=== PATIENT | female | born 2000 | race Two or more races ===

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

== ENCOUNTER → 2023-01-27 | Outpatient (CLI) | payer OTHER ==
[2023-01-27 15:33] LABS: T4, Free (Free Thyroxine) 1.45 ng/dL (0.83-1.43)
[2023-01-28 05:18] LABS: Herpes simplex I and/or II IgM 0.59 INDEX (<=0.90); Herpes simplex IgG I Ab <0.01 (< or = 0.90); Herpes simplex IgG II Ab 0.44 (< or = 0.90)
[2023-01-28 14:57] LABS: N. gonorrhoeae,PCR Negative (Negative)
[2023-01-28 15:10] LABS: C. trachomatis,PCR Negative (Negative)
[2023-01-28 19:59] LABS: HIV 2 AB Non-Reactive (Non-Reactive); HIV AB P24 Non-Reactive (Non-Reactive); HIV P24 AG Non-Reactive (Non-Reactive)
== END | disposition home or self-care (01) ==
LOC: LABWHC1 10:01
PROVIDERS: ATTEND Internal Medicine
DX: Z20.2 Contact with and (suspected) exposure to infections with a predominantly sexual mode of transmission (principal); E03.9 Hypothyroidism, unspecified; E55.9 Vitamin D deficiency, unspecified
CPT/HCPCS: 36415; 82306; 82652; 84439; 84443; 86631; 86632; 86694; 86695; 86696; 86780; 87390; 87491; 87591

== ENCOUNTER → 2023-02-01 | Outpatient (CLI) | payer OTHER ==
--- NOTE | 2023-02-01 21:54 | MR ---
EXAMINATION TYPE: MR brain wo/w con DATE OF EXAM: 02/01/2023 COMPARISON: 11/21/2021 HISTORY: Brain cancer. Hx surgery 2012. CONTRAST: Performed utilizing 5.5 mL intravenous Gadavist gadolinium contrast. TECHNIQUE: Multiplanar, multiecho imaging on a 3.0 Linda magnet is performed through the brain. Stud y is performed within 24 hours of arrival to the hospital. The craniovertebral junction is normal. The pituitary is normal. Optic chiasm as visualized is norm al. Diffusion-weighted imaging is performed. No abnormal hyperintensity is present to suggest an acute i ntracranial infarct or acute ischemic change. Signal within the brain appears normal. Following contrast, no abnormal enhancement is evident. No carrillo spicious changes to suggest recurrence. Ventricles and sulci are appropriate for the patient age. IMPRESSION: 1. No suspicious change suggestive of recurrence.
== END | disposition home or self-care (01) ==
LOC: RADMRIMAIN 07:48
PROVIDERS: ATTEND Internal Medicine
DX: C71.9 Malignant neoplasm of brain, unspecified (principal)
CPT/HCPCS: 70553; A9585

== ENCOUNTER 2023-06-21 08:25 | Emergency (ER) | payer OTHER ==
--- NOTE | 2023-06-21 08:40 | ED ---
Abdominal Pain HPI - General Chief Complaint: Abdominal Pain Stated Complaint: Abdominal Pain Time Seen by Provider: 06/21/23 08:32 Source: patient, RN notes reviewed Mode of arrival: ambulatory Limitations: no limitations - History of Present Illness Initial Comments: 22-year-old female presents emergency department chief complaint of left-sided abdominal pain, pelvic pain. She states pain has been intermittent states that she does not currently have but states that has happened. No change in bowel habits no dysuria denies chance of . No fevers or chills she states she is just concerned as she had a brain tumor when she was younger so she always worried something else is wrong. She denies any prior abdominal surgeries no flank pain no back pain. - Related Data Allergies Allergy/AdvReac Type Severity Reaction Status Date / Time No Known Allergies Allergy Verified 06/21/23 08:31 Review of Systems ROS Statement: Those systems with pertinent positive or pertinent negative responses have been documented in the HPI. ROS Other: All systems not noted in ROS Statement are negative. Past Medical History Past Medical History: Cancer History of Any Multi-Drug Resistant Organisms: None Reported Additional Past Surgical History / Comment(s): Brain CA, G tube Past Psychological History: No Psychological Hx Reported Smoking Status: Never smoker Past Alcohol Use History: None Reported Past Drug Use History: None Reported General Exam Limitations: no limitations General appearance: alert, in no apparent distress Head exam: Present: atraumatic, normocephalic, normal inspection Eye exam: Present: normal appearance, PERRL, EOMI. Absent: scleral icterus, conjunctival injection, periorbital swelling ENT exam: Present: normal exam, mucous membranes moist Neck exam: Present: normal inspection. Absent: tenderness, meningismus, lymphadenopathy Respiratory exam: Present: normal lung sounds bilaterally. Absent: respiratory distress, wheezes, rales, rhonchi, stridor Cardiovascular Exam: Present: regular rate, normal rhythm, normal heart sounds. Absent: systolic murmur, diastolic murmur, rubs, gallop, clicks GI/Abdominal exam: Present: soft, normal bowel sounds. Absent: distended, tenderness, guarding, rebound, rigid Back exam: Absent: CVA tenderness (R), CVA tenderness (L) Neurological exam: Present: alert Course Vital Signs 06/21/23 06/21/23 06/21/23 08:28 08:47 08:58 Temperature 98.1 F 98.2 F Pulse Rate 128 H 139 H 117 H Respiratory 18 18 20 Rate Blood Pressure 150/82 129/88 O2 Sat by Pulse 99 100 100 Oximetry 06/21/23 06/21/23 10:00 10:59 Temperature 98.6 F Pulse Rate 67 89 Respiratory 16 18 Rate Blood Pressure 113/69 101/83 O2 Sat by Pulse 100 100 Oximetry Medical Decision Making - Medical Decision Making Was pt. sent in by a medical professional or institution (, PA, PER DIEM CLERK, urgent care, hospital, or [place] [facility]...) When possible be specific @ -No Did you speak to anyone other than the patient for history (EMS, parent, family, police, friend...)? What history was obtained from this source @ -No Did you review nursing and triage notes (agree or disagree)? Why? @ -I reviewed and agree with nursing and triage notes Were old charts reviewed (outside hosp., previous admission, EMS record, old EKG, old radiological studies, urgent care reports/EKG's, [place] [facility] records)? Report findings @ -No old charts were reviewed Differential Diagnosis (chest pain, altered mental status, abdominal pain women, abdominal pain men, vaginal bleeding, weakness, fever, dyspnea, syncope, headache, dizziness, GI bleed, back pain, seizure, CVA, palpatations, mental health, musculoskeletal)? @ -Differential Abdominal Pain Women: Appendicitis, Cholecystitis, diverticulosis, ischemic bowel, pancreatitis, hepatitis, UTI, gastroenteritis, AAA, incarcerated hernia, bowel obstruction, constipation, inflammatory bowel, hepatitis, peptic ulcer disease, splenic infarction, perforated viscus, vulvitis, ovarian torsion, PID, kidney stone, placenta abruption, this is not meant to be an all-inclusive list EKG interpreted by me (3pts min.). @ -None X-rays interpreted by me (1pt min.). @ -None done CT interpreted by me (1pt min.). @ -None done U/S interpreted by me (1pt. min.). @ -Ultrasound pelvic showed no acute abnormality no torsion or cyst noted What testing was considered but not performed or refused? (CT, X-rays, U/S, labs)? Why? @ -None What meds were considered but not given or refused? Why? @ -None Did you discuss the management of the patient with other professionals (professionals i.e. , PA, PER DIEM CLERK, lab, RT, psych nurse, social services, cocoa bean roaster, teacher, adult probation officer, casework supervisor)? Give summary @ -No Was smoking cessation discussed for >3mins.? @ -No Was critical care preformed (if so, how long)? @ -No Were there social determinants of health that impacted care today? How? (Homelessness, low income, unemployed, alcoholism, drug addiction, transpo rtation, low edu. Level, literacy, decrease access to med. care, [place] [facility], rehab)? @ -No Was there de-escalation of care discussed even if they declined (Discuss DNR or withdrawal of care, Hospice)? DNR status @ -No What co-morbidities impacted this encounter? (DM, HTN, Smoking, COPD, CAD, Cancer, CVA, ARF, Chemo, Hep., AIDS, mental health diagnosis, sleep apnea, morbid obesity)? @ -None Was patient admitted / discharged? Hospital course, mention meds given and route, prescriptions, significant lab abnormalities, going to OR and other pertinent info. @ -Discharge patient ultrasound negative for acute process. Patient is discharged in stable condition vitals, labs unremarkable. Undiagnosed new problem with uncertain prognosis? @ -No Drug Therapy requiring intensive monitoring for toxicity (Heparin, Nitro, Insulin, Cardizem)? @ -No Were any procedures done? @ -No Diagnosis/symptom? @ -Abdominal pain Acute, or Chronic, or Acute on Chronic? @ -Acute Uncomplicated (without systemic symptoms) or Complicated (systemic symptoms)? @ -Uncomplicated Side effects of treatment? @ -No Exacerbation, Progression, or Severe Exacerbation? @ -No Poses a threat to life or bodily function? How? (Chest pain, [place], [place], pneumonia, PE, COPD, DKA, ARF, appy, cholecystitis, CVA, Diverticulitis, Homicidal, Suic idal, threat to staff... and all critical care pts) @ -No - Lab Data Result diagrams: 06/21/23 08:40 06/21/23 08:40 Lab Results 06/21/23 06/21/23 06/21/23 Range/Units 08:40 08:40 08:40 WBC 7.2 (4.0-11.0) k/uL RBC 4.58 (3.80-5.40) m/uL Hgb 14.0 (11.4-16.0) gm/dL Hct 41.0 (34.0-46.0) % MCV 89.6 (80.0-100.0) fL MCH 30.6 (25.0-35.0) pg MCHC 34.1 (31.0-37.0) g/dL RDW 12.4 (11.5-15.5) % Plt Count 336 (150-450) k/uL MPV 8.3 Neutrophils % 56 % Lymphocytes % 34 % Monocytes % 5 % Eosinophils % 4 % Basophils % 1 % Neutrophils # 4.0 (1.3-7.7) k/uL Lymphocytes # 2.4 (1.0-4.8) k/uL Monocytes # 0.4 (0-1.0) k/uL Eosinophils # 0.3 (0-0.7) k/uL Basophils # 0.0 (0-0.2) k/uL Sodium (137-145) mmol/L Potassium (3.5-5.1) mmol/L Chloride (98-107) mmol/L Carbon Dioxide (22-30) mmol/L Anion Gap mmol/L BUN (7-17) mg/dL Creatinine (0.52-1.04) mg/dL Est GFR (CKD-EPI)AfAm (>60 ml/min/1.73 sqM) Est GFR (CKD-EPI)NonAf (>60 ml/min/1.73 sqM) Glucose (74-99) mg/dL Calcium (8.4-10.2) mg/dL Total Bilirubin (0.2-1.3) mg/dL AST (14-36) U/L ALT (4-34) U/L Alkaline Phosphatase (38-126) U/L Total Protein (6.3-8.2) g/dL Albumin (3.5-5.0) g/dL Lipase (23-300) U/L Urine Color Yellow Urine Appearance Cloudy H (Clear) Urine pH 5.5 (5.0-8.0) Ur Specific [place] 1.027 (1.001-1.035) Urine Protein 1+ H (Negative) Urine Glucose (UA) Negative (Negative) Urine Ketones Negative (Negative) Urine Blood Small H (Negative) Urine Nitrite Negative (Negative) Urine Bilirubin Negative (Negative) Urine Urobilinogen <2.0 (<2.0) mg/dL Ur Leukocyte Esterase Negative (Negative) Urine RBC 3 (0-5) /hpf Urine WBC 5 (0-5) /hpf Ur Squamous Epith Cells 18 H (0-4) /hpf Urine Bacteria Rare H (None) /hpf Urine Mucus Occasional H (None) /hpf Urine HCG, Qual Not Detected (Not Detectd) 06/21/23 Range/Units 08:40 WBC (4.0-11.0) k/uL RBC (3.80-5.40) m/uL Hgb (11.4-16.0) gm/dL Hct (34.0-46.0) % MCV (80.0-100.0) fL MCH (25.0-35.0) pg MCHC (31.0-37.0) g/dL RDW (11.5-15.5) % Plt Count (150-450) k/uL MPV Neutrophils % % Lymphocytes % % Monocytes % % Eosinophils % % Basophils % % Neutrophils # (1.3-7.7) k/uL Lymphocytes # (1.0-4.8) k/uL Monocytes # (0-1.0) k/uL Eosinophils # (0-0.7) k/uL Basophils # (0-0.2) k/uL Sodium 138 (137-145) mmol/L Potassium 3.7 (3.5-5.1) mmol/L Chloride 106 (98-107) mmol/L Carbon Dioxide 23 (22-30) mmol/L Anion Gap 9 mmol/L BUN 15 (7-17) mg/dL Creatinine 0.57 (0.52-1.04) mg/dL Est GFR (CKD-EPI)AfAm >90 (>60 ml/min/1.73 sqM) Est GFR (CKD-EPI)NonAf >90 (>60 ml/min/1.73 sqM) Glucose 96 (74-99) mg/dL Calcium 9.7 (8.4-10.2) mg/dL Total Bilirubin 0.7 (0.2-1.3) mg/dL AST 28 (14-36) U/L ALT 24 (4-34) U/L Alkaline Phosphatase 64 (38-126) U/L Total Protein 7.6 (6.3-8.2) g/dL Albumin 4.5 (3.5-5.0) g/dL Lipase 89 (23-300) U/L Urine Color Urine Appearance (Clear) Urine pH (5.0-8.0) Ur Specific [place] (1.001-1.035) Urine Protein (Negative) Urine Glucose (UA) (Negative) Urine Ketones (Negative) Urine Blood (Negative) Urine Nitrite (Negative) Urine Bilirubin (Negative) Urine Urobilinogen (<2.0) mg/dL Ur Leukocyte Esterase (Negative) Urine RBC (0-5) /hpf Urine WBC (0-5) /hpf Ur Squamous Epith Cells (0-4) /hpf Urine Bacteria (None) /hpf Urine Mucus (None) /hpf Urine HCG, Qual (Not Detectd) Disposition Clinical Impression: Abdominal pain Disposition: HOME SELF-CARE Condition: Stable Instructions (If sedation given, give patient instructions): Abdominal Pain (ED) Additional Instructions: Please return to the Emergency Department if symptoms worsen or any other concerns. Is patient prescribed a controlled substance at d/c from ED?: No Referrals: None,Stated [REFERRING] - 1-2 days Zofia Pritchett MD [STAFF PHYSICIAN] - 1-2 days Time of Disposition: 10:24
[2023-06-21 09:41] LABS: ALT 24 U/L (4-34); AST 28 U/L (14-36); African American GFR (CKD) >90 (>60 ml/min/1.73 sqM); Albumin 4.5 g/dL (3.5-5.0); Alkaline Phosphatase 64 U/L (38-126); Anion Gap 9 mmol/L; Basophils % (A) 1 %; Blood Urea Nitrogen 15 mg/dL (7-17); Calcium 9.7 mg/dL (8.4-10.2); Carbon Dioxide 23 mmol/L (22-30); Chloride 106 mmol/L (98-107); Eosinophils # (A) 0.3 k/uL (0-0.7); Eosinophils % (A) 4 %; Glucose 96 mg/dL (74-99); Lipase 89 U/L (23-300); Lymphocytes # (A) 2.4 k/uL (1.0-4.8); Lymphocytes % (A) 34 %; MCH 30.6 pg (25.0-35.0); MCHC 34.1 g/dL (31.0-37.0); MCV 89.6 fL (80.0-100.0); Mean Platelet Volume 8.3; Monocytes # (A) 0.4 k/uL (0-1.0); Monocytes % (A) 5 %; Neutrophils % (A) 56 %; Non-African American GFR(CKD) >90 (>60 ml/min/1.73 sqM); Platelet Count 336 k/uL (150-450); Potassium 3.7 mmol/L (3.5-5.1); RBC 4.58 m/uL (3.80-5.40); RDW 12.4 % (11.5-15.5); Sodium 138 mmol/L (137-145); Total Bilirubin 0.7 mg/dL (0.2-1.3); Total Protein 7.6 g/dL (6.3-8.2); WBC 7.2 k/uL (4.0-11.0)
[2023-06-21 09:44] LABS: Appearance,Urine Cloudy (Clear); Bacteria,Urine Rare /hpf; Bilirubin,Urine Negative (Negative); Blood,Urine Small (Negative); Color,Urine Yellow; Glucose,Urine (UA) Negative (Negative); Ketones,Urine Negative (Negative); Leukocyte Esterase,Urine Negative (Negative); Mucus,Urine Occasional /hpf; Nitrite,Urine Negative (Negative); PH, Urine 5.5 (5.0-8.0); Protein,Urine 1+ (Negative); RBC,Urine 3 /hpf (0-5); Specific Gravity,Urine 1.027 (1.001-1.035); Squamous Epithelial Cell,Urine 18 /hpf (0-4); Urobilinogen,Urine <2.0 mg/dL (<2.0); WBC,Urine 5 /hpf (0-5)
[2023-06-21] MEDS: SODIUM CHLORIDE 0.9% 1,000 ML IV ONE (09:54)
--- NOTE | 2023-06-21 10:14 | US ---
EXAMINATION TYPE: US transvaginal DATE OF EXAM: 06/21/2023 COMPARISON: NONE CLINICAL INDICATION: Female, 22 years old with history of left sided pain; llq pain TECHNIQUE: Transvaginal (TV). EXAM MEASUREMENTS: Uterus: 7.7 x 3.6 x 5.2 cm Endometrial Stripe: 1.5 cm Left Ovary: 2.7 x 1.5 x 1.9 cm 1. Uterus: Retroverted wnl 2. Endometrium: wnl 3. Right Ovary: Obscured by overlying bowel gas 4. Left Ovary: Normal follicle Spectral, color and waveform doppler imaging shows good arterial and venous flow within the left ov malick; there is no evidence for ovarian torsion. 5. Bilateral Adnexa: wnl 6. Posterior cul-de-sac: wnl IMPRESSION: Unremarkable exam.
[2023-06-21 11:09] VITALS: BP 101/83; PULSE 89; RESP 18; TEMP 98.6
== END 2023-06-21 11:03 | disposition home or self-care (01) ==
LOC: EC 08:25
DX: R10.2 Pelvic and perineal pain (principal)
CPT/HCPCS: 36415; 76830; 80053; 81001; 81025; 83690; 85025; 93976; 96360; 99284

== ENCOUNTER 2023-10-07 17:58 | Observation (INO) | payer OTHER ==
--- NOTE | 2023-10-07 18:28 | ED ---
Abdominal Pain HPI - General Source: patient, RN notes reviewed Mode of arrival: ambulatory Limitations: no limitations <Mila Singh - Last Filed: 10/08/23 00:29> <Fortino Oliveira - Last Filed: 10/09/23 06:22> - General Chief Complaint: Abdominal Pain Stated Complaint: R side pain Time Seen by Provider: 10/07/23 18:26 - History of Present Illness Initial Comments: 22-year-old female with a past medical history significant of brain cancer presented to the ER with a chief complaint of right-sided flank/abdominal pain. She reports this started yesterday and persisted through last night. Today she had mild relief but has since returned about 1 hour ago. She describes it as a sharp pain rating it a 4 out of 10. She reports laying flat improves her pain and movement exacerbates it. She denies any nausea, vomiting, fevers, chills, constipation/diarrhea or urinary complaints. (Mila Singh) - Related Data Home Medications Medication Instructions Recorded Confirmed Ergocalciferol (Vitamin D2) 1,250 mcg PO Q30D 10/08/23 10/08/23 [Drisdol (50,000 Iu)] Levothyroxine Sodium [Synthroid] 75 mcg PO DAILY 10/08/23 10/08/23 Allergies Allergy/AdvReac Type Severity Reaction Status Date / Time No Known Allergies Allergy Verified 10/08/23 10:11 Review of Systems ROS Other: All systems not noted in ROS Statement are negative. <Mila Singh - Last Filed: 10/08/23 00:29> ROS Other: All systems not noted in ROS Statement are negative. <Fortino Oliveira - Last Filed: 10/09/23 06:22> ROS Statement: Those systems with pertinent positive or pertinent negative responses have been documented in the HPI. Past Medical History Past Medical History: Cancer History of Any Multi-Drug Resistant Organisms: None Reported Additional Past Surgical History / Comment(s): Brain CA, G tube Past Psychological History: No Psychological Hx Reported Smoking Status: Never smoker Past Alcohol Use History: None Reported Past Drug Use History: None Reported <Mila Singh - Last Filed: 10/08/23 00:29> General Exam Limitations: no limitations General appearance: alert, in no apparent distress Respiratory exam: Present: normal lung sounds bilaterally. Absent: respiratory distress, wheezes, rales, rhonchi, stridor Cardiovascular Exam: Present: regular rate, normal rhythm, normal heart sounds. Absent: systolic murmur, diastolic murmur, rubs, gallop, clicks GI/Abdominal exam: Present: soft, tenderness (RUQ), normal bowel sounds Back exam: Present: normal inspection Neurological exam: Present: alert, oriented X3, CN II-XII intact Skin exam: Present: warm, dry, intact, normal color. Absent: rash <Mila Singh - Last Filed: 10/08/23 00:29> Course <Mila Singh - Last Filed: 10/08/23 00:29> Vital Signs 10/07/23 10/07/23 10/07/23 18:04 21:00 22:00 Temperature 98.1 F Pulse Rate 83 70 76 Respiratory 18 16 16 Rate Blood Pressure 136/93 132/90 126/68 O2 Sat by Pulse 98 100 99 Oximetry 10/07/23 10/08/23 10/08/23 23:00 01:00 02:48 Temperature Pulse Rate 64 65 68 Respiratory 16 16 16 Rate Blood Pressure 117/84 112/70 107/58 O2 Sat by Pulse 99 99 98 Oximetry - Reevaluation(s) Reevaluation #1: 10/07/23 23:[address] Bales, [facility] physician, who accepts medical admission. (Mila Singh) Medical Decision Making - Lab Data Result diagrams: 10/07/23 18:46 10/07/23 18:46 <Mila Singh - Last Filed: 10/08/23 00:29> - Lab Data Result diagrams: 10/08/23 06:11 10/08/23 06:11 <Fortino Oliveira - Last Filed: 10/09/23 06:22> - Medical Decision Making Was pt. sent in by a medical professional or institution (, PA, SILK BLOCKER, urgent care, hospital, or longterm...) When possible be specific @ -No Did you speak to anyone other than the patient for history (EMS, parent, family, police, friend...)? What history was obtained from this source @ -No Did you review nursing and triage notes (agree or disagree)? Why? @ -I reviewed and agree with nursing and triage notes Were old charts reviewed (outside hosp., previous admission, EMS record, old EKG, old radiological studies, urgent care reports/EKG's, longterm records)? Report findings @ -Yes, I reviewed ER visit note and laboratory studies from June 2023 patient seen here for abdominal pain. Patient discharged home. Differential Diagnosis (chest pain, altered mental status, abdominal pain women, abdominal pain men, vaginal bleeding, weakness, fever, dyspnea, syncope, headache, dizziness, GI bleed, back pain, seizure, CVA, palpatations, mental health, musculoskeletal)? @ -Differential Abdominal Pain Women: Appendicitis, Cholecystitis, diverticulosis, ischemic bowel, pancreatitis, hepatitis, UTI, gastroenteritis, AAA, incarcerated hernia, bowel obstruction, constipation, inflammatory bowel, hepatitis, peptic ulcer disease, splenic infarction, perforated viscus, vulvitis , ovarian torsion, PID, kidney stone, placenta abruption, this is not meant to be an all-inclusive list EKG interpreted by me (3pts min.). @ -None done X-rays interpreted by me (1pt min.). @ -None done CT interpreted by me (1pt min.). @ -CT abdomen pelvis significant for right renal findings suggesting pyelonephritis or infarct. U/S interpreted by me (1pt. min.). @ -Gallbladder ultrasound remarkable for a 0.4 cm adherent calculus versus polyp along the anterior gallbladder wall. No acute evidence of cholecystitis. What testing was considered but not performed or refused? (CT, X-rays, U/S, labs)? Why? @ -None What meds were considered but not given or refused? Why? @ -None Did you discuss the management of the patient with other professionals (professionals i.e. , PA, SILK BLOCKER, lab, RT, psych nurse, dialysis social worker, [place], teacher, loan workout officer, immigration case worker)? Give summary @ -Yes, case discussed with Dr. Bales, [facility] physician, who accepts medical admission. Was smoking cessation discussed for >3mins.? @ -No Was critical care preformed (if so, how long)? @ -No Were there social determinants of health that impacted care today? How? (Homelessness, low income, unemployed, alcoholism, drug addiction, transportation, low edu. Level, literacy, decrease access to med. care, fci, rehab)? @ -No Was there de-escalation of care discussed even if they declined (Discuss DNR or withdrawal of care, Hospice)? DNR status @ -No What co-morbidities impacted this encounter? (DM, HTN, Smoking, COPD, CAD, Cancer, CVA, ARF, Chemo, Hep., AIDS, mental health diagnosis, sleep apnea, morbi d obesity)? @ -Hx brain cancer Was patient admitted / discharged? Hospital course, mention meds given and route, prescriptions, significant lab abnormalities, going to OR and other pertinent info. @ -Admitted. 22-year-old female presented to the ER with a chief complaint of right flank pain. History and physical exam completed. Vitals stable. Exam largely unremarkable. Laboratory studies obtained remarkable for leukocytosis WBC 11.6. Transaminitis (AST 250, ALT 693, alk phos 261, LDH 629). Urine analysis hemorrhagic with moderate blood which is likely contaminated from recen t menses. Urine hCG negative. No evidence of urinary tract infection. Due to transaminitis, gallbladder ultrasound obtained which was remarkable for a 0.4 cm polyp versus calculus. No acute findings of cholecystitis. CT abdomen pelvis performed as CBD not visualized on ultrasound. CT abdomen pelvis significant for right renal findings suggesting pyelonephritis or infarct. No other acute findings. Patient received IV fluids and Toradol for symptom control in the ER. Admission considered due to CT findings and concern due to patient's cancer history. Case discussed with [facility] physician, Dr. Bales, who admission. Oncology on consult. Patient agreeable for admission. Patient is in stable condition. Case disucssed with ED attending, Dr. Oliveira. Undiagnosed new problem with uncertain prognosis? @ -No Drug Therapy requiring intensive monitoring for toxicity (Heparin, Nitro, Insulin, Cardizem)? @ -No Were any procedures done? @ -No Diagnosis/symptom? @ -Flank pain Acute, or Chronic, or Acute on Chronic? @ -Acute Uncomplicated (without systemic symptoms) or Complicated (systemic symptoms)? @ -Complicated Side effects of treatment? @ -No Exacerbation, Progression, or Severe Exacerbation? @ -No Poses a threat to life or bodily function? How? (Chest pain, [place], [place], pneumonia, PE, COPD, DKA, ARF, appy, cholecystitis, CVA, Diverticulitis, Homicidal, Suicidal, threat to staff... and all critical care pts) @ -Low likelihood at this time (Mila Singh) - Lab Data Lab Results 10/07/23 10/07/23 10/07/23 Range/Units 18:46 18:46 18:46 WBC 11.6 H (4.0-11.0) k/uL RBC 4.19 (3.80-5.40) m/uL Hgb 12.6 (11.4-16.0) gm/dL Hct 38.2 (34.0-46.0) % MCV 91.3 (80.0-100.0) fL MCH 30.1 (25.0-35.0) pg MCHC 32.9 (31.0-37.0) g/dL RDW 12.8 (11.5-15.5) % Plt Count 179 (150-450) k/uL MPV 7.3 Neutrophils % Not Reportable Neutrophils % (Manual) 24 % Lymphocytes % Not Reportable Lymphocytes % (Manual) 70 % Monocytes % Not Reportable Monocytes % (Manual) 6 % Eosinophils % Not Reportable Basophils % Not Reportable Neutrophils # Not Reportable Neutrophils # (Manual) 2.78 (1.3-7.7) k/uL Lymphocytes # Not Reportable Lymphocytes # (Manual) 8.12 H (1.0-4.8) k/uL Monocytes # Not Reportable Monocytes # (Manual) 0.70 (0-1.0) k/uL Eosinophils # Not Reportable Basophils # Not Reportable Nucleated RBCs 0 (0-0) /100 WBC Manual Slide Review Performed Reactive Lymphocytes Present RBC Morphology Sodium (137-145) mmol/L Potassium (3.5-5.1) mmol/L Chloride (98-107) mmol/L Carbon Dioxide (22-30) mmol/L Anion Gap mmol/L BUN (7-17) mg/dL Creatinine (0.52-1.04) mg/dL Est GFR (CKD-EPI)AfAm (>60 ml/min/1.73 sqM) Est GFR (CKD-EPI)NonAf (>60 ml/min/1.73 sqM) Glucose (74-99) mg/dL Plasma Lactic Acid Neri (0.7-2.0) mmol/L Calcium (8.4-10.2) mg/dL Total Bilirubin (0.2-1.3) mg/dL AST (14-36) U/L ALT (4-34) U/L Alkaline Phosphatase (38-126) U/L Lactate Dehydrogenase (120-246) U/L Total Protein (6.3-8.2) g/dL Albumin (3.5-5.0) g/dL Amylase (30-110) U/L Lipase (23-300) U/L Urine Color Yellow Urine Appearance Clear (Clear) Urine pH 5.5 (5.0-8.0) Ur Specific [place] 1.021 (1.001-1.035) Urine Protein Trace H (Negative) Urine Glucose (UA) Negative (Negative) Urine Ketones Negative (Negative) Urine Blood Moderate H (Negative) Urine Nitrite Negative (Negative) Urine Bilirubin Negative (Negative) Urine Urobilinogen <2.0 (<2.0) mg/dL Ur Leukocyte Esterase Negative (Negative) Urine RBC 2 (0-5) /hpf Urine WBC 2 (0-5) /hpf Ur Squamous Epith Cells 4 (0-4) /hpf Urine Bacteria Rare H (None) /hpf Urine Mucus Occasional H (None) /hpf Urine HCG, Qual Not Detected (Not Detectd) 10/07/23 10/07/23 10/07/23 Range/Units 18:46 18:46 18:46 WBC (4.0-11.0) k/uL RBC (3.80-5.40) m/uL Hgb (11.4-16.0) gm/dL Hct (34.0-46.0) % MCV (80.0-100.0) fL MCH (25.0-35.0) pg MCHC (31.0-37.0) g/dL RDW (11.5-15.5) % Plt Count (150-450) k/uL MPV Neutrophils % Neutrophils % (Manual) % Lymphocytes % Lymphocytes % (Manual) % Monocytes % Monocytes % (Manual) % Eosinophils % Basophils % Neutrophils # Neutrophils # (Manual) (1.3-7.7) k/uL Lymphocytes # Lymphocytes # (Manual) (1.0-4.8) k/uL Monocytes # Monocytes # (Manual) (0-1.0) k/uL Eosinophils # Basophils # Nucleated RBCs (0-0) /100 WBC Manual Slide Review Reactive Lymphocytes RBC Morphology Sodium 140 (137-145) mmol/L Potassium 3.6 (3.5-5.1) mmol/L Chloride 107 (98-107) mmol/L Carbon Dioxide 25 (22-30) mmol/L Anion Gap 8 mmol/L BUN 19 H (7-17) mg/dL Creatinine 0.64 (0.52-1.04) mg/dL Est GFR (CKD-EPI)AfAm >90 (>60 ml/min/1.73 sqM) Est GFR (CKD-EPI)NonAf >90 (>60 ml/min/1.73 sqM) Glucose 97 (74-99) mg/dL Plasma Lactic Acid Neri 1.2 (0.7-2.0) mmol/L Calcium 9.5 (8.4-10.2) mg/dL Total Bilirubin 1.1 (0.2-1.3) mg/dL AST 250 H (14-36) U/L ALT 693 H (4-34) U/L Alkaline Phosphatase 261 H (38-126) U/L Lactate Dehydrogenase 629 H (120-246) U/L Total Protein 7.2 (6.3-8.2) g/dL Albumin 4.3 (3.5-5.0) g/dL Amylase 52 (30-110) U/L Lipase 93 (23-300) U/L Urine Color Urine Appearance (Clear) Urine pH (5.0-8.0) Ur Specific [place] (1.001-1.035) Urine Protein (Negative) Urine Glucose (UA) (Negative) Urine Ketones (Negative) Urine Blood (Negative) Urine Nitrite (Negative) Urine Bilirubin (Negative) Urine Urobilinogen (<2.0) mg/dL Ur Leukocyte Esterase (Negative) Urine RBC (0-5) /hpf Urine WBC (0-5) /hpf Ur Squamous Epith Cells (0-4) /hpf Urine Bacteria (None) /hpf Urine Mucus (None) /hpf Urine HCG, Qual (Not Detectd) Disposition Time of Disposition: 23:12 <Mila Singh - Last Filed: 10/08/23 00:29> <Fortino Oliveira - Last Filed: 10/09/23 06:22> Clinical Impression: Flank pain Disposition: ADMITTED IP TO THIS HOSP Condition: Stable
[2023-10-07] MEDS: SODIUM CHLORIDE 0.9% 1,000 ML IV STA (18:52)
[2023-10-07 18:55] LABS: HCT 38.2 % (34.0-46.0); HGB 12.6 gm/dL (11.4-16.0); MCH 30.1 pg (25.0-35.0); MCHC 32.9 g/dL (31.0-37.0); MCV 91.3 fL (80.0-100.0); Mean Platelet Volume 7.3; Platelet Count 179 k/uL (150-450); RBC 4.19 m/uL (3.80-5.40); RDW 12.8 % (11.5-15.5); WBC 11.6 k/uL (4.0-11.0)
[2023-10-07 19:00] LABS: Appearance,Urine Clear (Clear); Bacteria,Urine Rare /hpf; Bilirubin,Urine Negative (Negative); Blood,Urine Moderate (Negative); Color,Urine Yellow; Glucose,Urine (UA) Negative (Negative); Ketones,Urine Negative (Negative); Leukocyte Esterase,Urine Negative (Negative); Mucus,Urine Occasional /hpf; Nitrite,Urine Negative (Negative); PH, Urine 5.5 (5.0-8.0); Protein,Urine Trace (Negative); RBC,Urine 2 /hpf (0-5); Specific Gravity,Urine 1.021 (1.001-1.035); Squamous Epithelial Cell,Urine 4 /hpf (0-4); Urobilinogen,Urine <2.0 mg/dL (<2.0); WBC,Urine 2 /hpf (0-5)
--- NOTE | 2023-10-07 19:02 | XR ---
EXAMINATION TYPE: XR KUB DATE OF EXAM: 10/07/2023 6:58 PM CLINICAL INDICATION:Female, 22 years old with history of abd pain; COMPARISON: None. TECHNIQUE: One radiographic view of the abdomen was obtained. FINDINGS: Moderate amount of stool, The bowel gas pattern is nonspecific without dilated loops of sma ll or large bowel. . Fecal material and gas are demonstrated throughout the colon and rectum. There is no evidence for organomegaly or pneumoperitoneum. The osseous structures are intact. No ab normal calcifications are present. Scoliosis changes of the spine. IMPRESSION: Moderate amount of stool, Nonspecific bowel gas pattern without radiographic evidence for acute proce ss.
[2023-10-07 19:06] LABS: ALT 693 U/L (4-34); AST 250 U/L (14-36); African American GFR (CKD) >90 (>60 ml/min/1.73 sqM); Albumin 4.3 g/dL (3.5-5.0); Alkaline Phosphatase 261 U/L (38-126); Amylase 52 U/L (30-110); Anion Gap 8 mmol/L; Blood Urea Nitrogen 19 mg/dL (7-17); Calcium 9.5 mg/dL (8.4-10.2); Carbon Dioxide 25 mmol/L (22-30); Chloride 107 mmol/L (98-107); Glucose 97 mg/dL (74-99); Lipase 93 U/L (23-300); Non-African American GFR(CKD) >90 (>60 ml/min/1.73 sqM); Potassium 3.6 mmol/L (3.5-5.1); Sodium 140 mmol/L (137-145); Total Bilirubin 1.1 mg/dL (0.2-1.3); Total Protein 7.2 g/dL (6.3-8.2)
[2023-10-07 19:21] LABS: Lymphocytes # (M) 8.12 k/uL (1.0-4.8); Neutrophils # (M) 2.78 k/uL (1.3-7.7); Neutrophils % (M) 24 %; Nucleated Red Blood Cells 0 /100 WBC (0-0); Total Cells Counted 100
[2023-10-07 19:24] LABS: Reactive Lymphocytes Present
--- NOTE | 2023-10-07 20:48 | US ---
EXAMINATION TYPE: US gallbladder DATE OF EXAM: 10/07/2023 COMPARISON: NONE CLINICAL INDICATION: Female, 22 years old with history of RUQ abd pain; RUQ pain TECHNIQUE: Multiple sonographic images of the right upper quadrant are obtained. FINDINGS: EXAM MEASUREMENTS: Liver Length: 15.3 cm Gallbladder Wall: 0.27 cm CBD: Obscured Right Kidney: 9.3 x 5.4 x 3.5 cm [place] NOTES: Exam is limited due to overlying gas. Pancreas: Portions seen appear wnl, tail was obscured. Liver: Appears coarse in echotexture Gallbladder: Hyperechoic area seen that appears to be attached to the anterior gallbladder wall: 0.4 x 0.4 x 0.2 cm, without color Doppler flow demonstrated Evidence for sonographic Zapien's sign: No CBD: Obscured Right Kidney: No hydronephrosis or masses seen IMPRESSION: 1. Limited study. Pancreatic tail and CBD are obscured. 2. A 0.4 cm adherent calculus versus polyp along the anterior gallbladder wall. 3. Otherwise, no sizable gallstones are demonstrated. No secondary signs of acute cholecystitis. 4. Coarsened hepatic echotexture, can be seen with diffuse hepatocellular disease, commonly steatosi s.
--- NOTE | 2023-10-07 21:37 | CT ---
EXAMINATION TYPE: CT abdomen pelvis w con CT DLP: 575.3 mGycm, Automated exposure control for dose reduction was used. DATE OF EXAM: 10/07/2023 9:17 PM COMPARISON: None. CLINICAL INDICATION:Female, 22 years old with history of transaminitis; Right side and back pain x 2 days TECHNIQUE: Axial CT of the abdomen and pelvis. Sagittal and coronal reformats were created on a [employer] workstation. Contrast used:100 mL of Isovue 300 with IV Contrast, (none if empty) Oral contrast used: without Oral Contrast (none if empty) FINDINGS: LOWER CHEST: Unremarkable ABDOMEN LIVER: Unremarkable GALLBLADDER AND BILE DUCTS: Unremarkable gallbladder. No biliary ductal dilatation. PANCREAS: Unremarkable. SPLEEN: Unremarkable. ADRENAL GLANDS: Unremarkable. KIDNEYS AND URETERS: Kidneys largely appear to enhance normally. There is a small wedge-shaped periph eral area in the superior right kidney posterolaterally with slight haziness of the corticomedullary distinction which appears to extend to the parenchymal surface. There are subtle similar changes sugg ested in the anteromedial right upper pole and the interpolar region. No visible calculi are seen. Th ere is no hydronephrosis. PELVIS BLADDER: Urinary bladder appears grossly unremarkable. REPRODUCTIVE: There is central uterine prominent hypoattenuation, however likely normal changes of me nstruation in a young reproductive age patient. Ovaries are not clearly defined. No suggestion of an adnexal mass. Trace free pelvic fluid not beyond physiologic. ABDOMEN & PELVIS STOMACH AND BOWEL: The stomach and small bowel are nondistended there is no evidence of obstruction. The appendix is seen extending into the pelvis across the right psoas muscle, and appears normal. The re is moderate stool throughout the colon, without acute abnormality demonstrated. PERITONEUM/RETROPERITONEUM: No evidence of pneumoperitoneum or free fluid. VASCULATURE: Aorta and major branches are grossly unremarkable. No AAA. Portal veins are enhancing. Splenic vein and SMV are patent. LYMPH NODES: No enlarged nodes by CT size criteria. SOFT TISSUE/ABDOMINAL WALL: Mild laxity between the abdominal rectus muscles with tiny fat containing umbilical region hernia. MUSCULOSKELETAL: No acute osseous abnormalities. Mild degenerative changes of the lumbar spine. IMPRESSION: 1. Right renal findings may be seen with pyelonephritis, or infarct. Please correlate and follow-up clinically. 2. No visualized urinary tract calculi or hydronephrosis. 3. Other chronic and likely incidental findings, as described above.
[2023-10-07] MEDS: KETOROLAC 15 MG/ML 1 ML VIAL IVP STA (21:53)
[2023-10-07] MEDS ORDERED: NALOXONE 0.4 MG/ML 1 ML VIAL IV PRN (23:12)
[2023-10-07] MEDS ORDERED: ONDANSETRON 4 MG/2 ML VIAL IVP PRN (23:12)
[2023-10-07] MEDS ORDERED: IBUPROFEN 400 MG TAB PO PRN (23:12)
[2023-10-07] MEDS ORDERED: ACETAMINOPHEN TAB 325 MG TAB PO PRN (23:12)
[2023-10-08] MEDS: SODIUM CHLORIDE 0.9% 1,000 ML IV SCH (00:32)
--- NOTE | 2023-10-08 01:06 | P.HPIM ---
History of Present Illness H&P Date: 10/08/23 Patient is a 22-year-old female with a PMH of brain cancer status post surgery, who chemotherapy, and radiation 12 years ago, currently in remission following with Who presents to the emergency room with complaints of right flank pain. Patient reports that her pain started suddenly [place] roughly 24 hours ago, it is 5 out of 10 at maximal intensity, constant, nonradiating, worsened with move ment and somewhat improved with laying down. She denied any associated fevers, urinary complaints, chills, nausea, vomiting, diarrhea. Denies any prior history of such pain. CT abdomen and pelvis in the emergency room revealed a wedge-shaped haziness in the superior right kidney concerning for infarction. There was no evidence of urinary calculus or hydronephrosis. Gallbladder ultrasound revealed findings of steatosis. EKG revealed sinus rhythm with sinus rhythm at [address]/T wave changes noted as reviewed by me. Laboratory evaluation was remarkable for leukocytosis of 11.6, sodium 140, potassium 3.6, chloride 107, CO2 25, BUN 19, creatinine 0.64, AST 250, ALT 693, alk phos 261, with LDH 619. ED documentation reviewed and case discussed with ED provider. Review of systems: Pertinent positives and negatives as discussed in HPI, a complete review of systems was performed and all other systems are negative. Physical examination: Vital signs reviewed General: non toxic, no distress, appears at stated age, overweight Derm: no unusual rashes/lesions, warm Head: atraumatic, normocephalic, symmetric Eyes: EOMI, no lid lag, anicteric sclera, pupils equal round reactive to light ENT: Nose and ears atraumatic Neck: No cervical lymphadenopathy, trachea midline, supple Mouth: no lip lesion, mucus membranes moist Cardiovascular: S1S2 reg, no murmur, positive dorsalis pedis pulse bilateral, no edema Lungs: CTA bilateral, no rhonchi, no rales, no accessory muscle use Abdominal: soft, nontender to palpation, no guarding, mild right flank tenderness Ext: muscle strength 5 out of 5 in all 4 extremities grossly, no gross muscle atrophy, no contractures, Neuro: CN II-XI grossly intact, no gross focal neuro deficits Psych: Alert, oriented, appropriate affect Assessment: Right flank pain with abnormal LFTs, unclear etiology Abnormal kidney imaging on CT, concerning for infarct Imaging: CT abdomen and pelvis in the emergency room revealed a wedge-shaped haziness in the superior right kidney concerning for infarction. There was no evidence of urinary calculus or hydronephrosis. Gallbladder ultrasound revealed findings of steatosis. EKG revealed sinus rhythm with sinus rhythm at [address]/T wave changes noted as reviewed by me. Data Review: Laboratory evaluation was remarkable for leukocytosis of 11.6, sodium 140, potassium 3.6, chloride 107, CO2 25, BUN 19, creatinine 0.64, AST 250, ALT 693, alk phos 261, with LDH 619. Plan: Obtain Echocardiogram to assess for endocarditis Continue to monitor LFTs Hematology/oncology consulted for suspected wedge infarct of right kidney DVT prophylaxis: Lovenox The patient is admitted with an anticipated fewer than 2 midnight stay for evaluation of abnormal LFTs CODE STATUS: Full Code Discussed with: Patient Anticipated discharge place: Home Past Medical History Past Medical History: Cancer History of Any Multi-Drug Resistant Organisms: None Reported Additional Past Surgical History / Comment(s): Brain CA, G tube Past Psychological History: No Psychological Hx Reported Smoking Status: Never smoker Past Alcohol Use History: None Reported Past Drug Use History: None Reported - Past Family History Mother Family Medical History: Hypertension Medications and Allergies Allergies Allergy/AdvReac Type Severity Reaction Status Date / Time No Known Allergies Allergy Verified 10/07/23 18:10 Physical Exam Vitals: Vital Signs Temp Pulse Resp BP Pulse Ox 10/07/23 23:00 64 16 117/84 99 10/07/23 22:00 76 16 126/68 99 10/07/23 21:00 70 16 132/90 100 10/07/23 18:04 98.1 F 83 18 136/93 98 Intake and Output 10/07/23 10/07/23 10/08/23 14:59 22:59 06:59 Other: Weight 58.06 kg Results CBC & Chem 7: 10/07/23 18:46 10/07/23 18:46 Labs: Abnormal Lab Results - Last 24 Hours (Table) 10/07/23 10/07/23 10/07/23 Range/Units 18:46 18:46 18:46 WBC 11.6 H (4.0-11.0) k/uL Lymphocytes # (Manual) 8.12 H (1.0-4.8) k/uL BUN 19 H (7-17) mg/dL AST 250 H (14-36) U/L ALT 693 H (4-34) U/L Alkaline Phosphatase 261 H (38-126) U/L Lactate Dehydrogenase (120-246) U/L Urine Protein Trace H (Negative) Urine Blood Moderate H (Negative) Urine Bacteria Rare H (None) /hpf Urine Mucus Occasional H (None) /hpf 10/07/23 Range/Units 18:46 WBC (4.0-11.0) k/uL Lymphocytes # (Manual) (1.0-4.8) k/uL BUN (7-17) mg/dL AST (14-36) U/L ALT (4-34) U/L Alkaline Phosphatase (38-126) U/L Lactate Dehydrogenase 629 H (120-246) U/L Urine Protein (Negative) Urine Blood (Negative) Urine Bacteria (None) /hpf Urine Mucus (None) /hpf
[2023-10-08 06:24] LABS: HCT 35.2 % (34.0-46.0); HGB 11.7 gm/dL (11.4-16.0); MCH 30.7 pg (25.0-35.0); MCHC 33.2 g/dL (31.0-37.0); MCV 92.4 fL (80.0-100.0); Mean Platelet Volume 7.1; Platelet Count 160 k/uL (150-450); RBC 3.81 m/uL (3.80-5.40); WBC 11.6 k/uL (4.0-11.0)
[2023-10-08 06:37] LABS: ALT 611 U/L (4-34); AST 223 U/L (14-36); African American GFR (CKD) >90 (>60 ml/min/1.73 sqM); Albumin 3.8 g/dL (3.5-5.0); Alkaline Phosphatase 242 U/L (38-126); Anion Gap 4 mmol/L; Blood Urea Nitrogen 16 mg/dL (7-17); Calcium 8.6 mg/dL (8.4-10.2); Carbon Dioxide 25 mmol/L (22-30); Chloride 108 mmol/L (98-107); Glucose 87 mg/dL (74-99); Non-African American GFR(CKD) >90 (>60 ml/min/1.73 sqM); Sodium 137 mmol/L (137-145); Total Protein 6.7 g/dL (6.3-8.2)
[2023-10-08] MEDS: ENOXAPARIN 40 MG/0.4 ML SYRINGE SQ SCH (08:07)
--- NOTE | 2023-10-08 10:14 | CA ---
Transthoracic Echo Report Name: Sandra Saab Age: 22 Gender: F : 2000 Exam Date: 10/08/2023 09:07 Exam Location: [facility] Ht (in): 59 Wt (lb): 128 Ordering Physician: Anjana Bales MD Attending/Referring Phys: [employer] Luisana Liu RDCS Procedure CPT: Indications: r/o endocarditis Cardiac Hx: Technical Quality: Good Contrast 1: Total Dose (mL): Contrast 2: Total Dose (mL): MEASUREMENTS (Male / Female) Normal Values 2D ECHO LV Diastolic Diameter PLAX 3.4 cm 4.2 - 5.9 / 3.9 - 5.3 cm LV Systolic Diameter PLAX 1.9 cm IVS Diastolic Thickness 0.8 cm 0.6 - 1.0 / 0.6 - 0.9 cm LVPW Diastolic Thickness 0.7 cm 0.6 - 1.0 / 0.6 - 0.9 cm LV Relative Wall Thickness 0.5 RV Internal Dim ED PLAX 2.2 cm LA Systolic Diameter LX 2.4 cm 3.0 - 4.0 / 2.7 - 3.8 cm LV Diastolic Volume MOD 4C 82.3 cm??? LV Systolic Volume MOD 4C 31.1 cm??? LV Ejection Fraction MOD 4C 62.3 % LV Cardiac Index MOD 4C 2708.0 cm???/min???m??? LV Diastolic Length 4C 7.3 cm LV Systolic Length 4C 5.6 cm LV Diastolic Volume MOD 2C 70.3 cm??? LV Systolic Volume MOD 2C 32.8 cm??? LV Ejection Fraction MOD 2C 53.3 % LV Cardiac Index MOD 2C 1978.5 cm???/min???m??? LV Diastolic Length 2C 6.9 cm LV Systolic Length 2C 5.6 cm LA Volume 26.2 cm??? 18 - 58 / 22 - 52 cm??? LA Volume Index 16.7 cm???/m??? 16 - 28 cm???/m??? M-MODE Aortic Root Diameter MM 2.6 cm AV Cusp Separation MM 1.9 cm DOPPLER AV Peak Velocity 142.2 cm/s AV Peak Gradient 8.1 mmHg MV Area PHT 5.0 cm??? Mitral E Point Velocity 94.5 cm/s Mitral A Point Velocity 62.7 cm/s Mitral E to A Ratio 1.5 MV Deceleration Time 151.5 ms TR Peak Velocity 196.5 cm/s TR Peak Gradient 15.5 mmHg Right Ventricular Systolic Press 20.5 mmHg FINDINGS Left Ventricle Left ventricular ejection fraction is estimated at 55-60 %. Small left ventricular cavity. Left ventricular wall thickness normal. Normal left ventricular wall motion. Right Ventricle Normal right ventricular size. Right ventricular systolic pressure within normal limits. Right Atrium Normal right atrial size. No right atrial thrombus or mass seen. Left Atrium Normal left atrial size. No left atrial thrombus or mass present. Mitral Valve Structurally normal mitral valve. No mitral stenosis, or prolapse. No mobile vegetation seen on the mitral valve.trace to mild mitral regurgitation. Aortic Valve Trileaflet aortic valve. No aortic valve stenosis or regurgitation. No vegetation on the aortic valve. Tricuspid Valve Structurally normal tricuspid valve. No tricuspid stenosis, or prolapse. No mobile vegetation seen on the tricuspid valve.trace to mild tricuspid regurgitation. Pulmonic Valve Structurally normal pulmonic valve. No pulmonic regurgitation. Pericardium No pericardial effusion. No pleural effusion. Aorta Normal size aortic root and proximal ascending aorta. CONCLUSIONS 1. Normal left ventricular systolic function 2. No evidence to suggest endocarditis 3. Trace to mild mitral and tricuspid regurgitation Previewed by: Dr. Symone Villa MD (Electronically Signed) Final Date: 08 October 2023 10:13
--- NOTE | 2023-10-09 00:21 | P.CONS ---
History of Present Illness - Reason for Consult Consult date: 10/08/23 Possible renal infarct - History of Present Illness The patient is a 22-year-old female, known to our service. She follows with Dr. Estela Soto in the outpatient setting. 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 Her previous treatment was in [place]. She established with our office last year, after moving to [place]. She had restaging MRIs done in 01/25, which were negative. She is currently on and will follow-up. The patient came into the hospital with acute onset of right-sided flank pain. There was some radiation towards the groin and the mid back. Pain was up to 10/10 in intensity. She had no associated symptoms such as fevers or chills, nausea vomiting. She denied any specific urinary complaints. She came to the ER, where she had CT of the abdomen pelvis and ultrasound. This revealed c hanges in the upper pole of the right kidney, with infarct versus pyelonephritis both in the differential. UA showed blood, but no WBCs or bacteria. Ultrasound revealed no abnormality in the gallbladder, and associated hepatic steatosis. He subsequently had an echocardiogram, that was negative for evidence of endocarditis. Consult was placed for further evaluation and recommendations. The patient denied any prior history of arterial or venous thrombosis. She is not on any hormonal supplementation other than levothyroxine, or on hormonal control. She is a non-smoker. She denies any recent infection or inflammation. Review of Systems Constitutional: Denies chills, Denies fever Eyes: denies blurred vision, denies pain Ears: deny: decreased hearing, ear discharge, earache, tinnitus Ears, nose, mouth and throat: Denies headache, Denies sore throat Cardiovascular: Denies chest pain, Denies shortness of breath Respiratory: Denies cough Gastrointestinal: Reports abdominal pain Genitourinary: Reports as per HPI, Reports flank pain Menstruation: Reports period normal Musculoskeletal: Denies myalgias Integumentary: Denies pruritus, Denies rash Neurological: Denies numbness, Denies weakness Psychiatric: Denies anxiety, Denies depression Endocrine: Denies fatigue, Denies weight change Hematologic/Lymphatic: Reports as per HPI Past Medical History Past Medical History: Cancer History of Any Multi-Drug Resistant Organisms: None Reported Additional Past Surgical History / Comment(s): Brain CA, G tube Past Psychological History: No Psychological Hx Reported Smoking Status: Never smoker Past Alcohol Use History: None Reported Past Drug Use History: None Reported - Past Family History Mother Family Medical History: Hypertension Medications and Allergies Home Medications Medication Instructions Recorded Confirmed Type Ergocalciferol (Vitamin D2) 1,250 mcg PO Q30D 10/08/23 10/08/23 History [Drisdol (50,000 Iu)] Levothyroxine Sodium [Synthroid] 75 mcg PO DAILY 10/08/23 10/08/23 History Allergies Allergy/AdvReac Type Severity Reaction Status Date / Time No Known Allergies Allergy Verified 10/08/23 10:11 Physical Exam Vitals: Vital Signs Temp Pulse Pulse Resp BP BP Pulse Ox 10/08/23 13:34 98.8 F 86 18 110/76 97 10/08/23 07:00 98.0 F 66 18 106/68 97 10/08/23 03:56 98.5 F 82 16 109/76 99 10/08/23 02:48 68 16 107/58 98 10/08/23 01:00 65 16 112/70 99 10/07/23 23:00 64 16 117/84 99 10/07/23 22:00 76 16 126/68 99 10/07/23 21:00 70 16 132/90 100 10/07/23 18:04 98.1 F 83 18 136/93 98 Intake and Output 10/08/23 10/08/23 10/08/23 06:59 14:59 22:59 Other: # Voids 0 1 # Bowel Movements 1 Weight 58.06 kg - Constitutional General appearance: no acute distress - EENT Eyes: EOMI, PERRLA ENT: hearing grossly normal, normal oropharynx - Neck Neck: no lymphadenopathy Thyroid: bilateral: normal size - Respiratory Respiratory: bilateral: CTA - Cardiovascular Rhythm: regular Heart sounds: normal: S1, S2 - Gastrointestinal General gastrointestinal: no organomegaly, soft, no tenderness - Integumentary Integumentary: normal - Neurologic Neurologic: CNII-XII intact - Musculoskeletal Musculoskeletal: strength equal bilaterally - Psychiatric Psychiatric: A&O x's 3, appropriate affect Results CBC & Chem 7: 10/08/23 06:11 10/08/23 06:11 Labs: Abnormal Lab Results - Last 24 Hours (Table) 10/07/23 10/07/23 10/07/23 Range/Units 18:46 18:46 18:46 WBC 11.6 H (4.0-11.0) k/uL Lymphocytes # (Manual) 8.12 H (1.0-4.8) k/uL Chloride (98-107) mmol/L BUN 19 H (7-17) mg/dL AST 250 H (14-36) U/L ALT 693 H (4-34) U/L Alkaline Phosphatase 261 H (38-126) U/L Lactate Dehydrogenase (120-246) U/L Urine Protein Trace H (Negative) Urine Blood Moderate H (Negative) Urine Bacteria Rare H (None) /hpf Urine Mucus Occasional H (None) /hpf 10/07/23 10/08/23 10/08/23 Range/Units 18:46 06:11 06:11 WBC 11.6 H (4.0-11.0) k/uL Lymphocytes # (Manual) (1.0-4.8) k/uL Chloride 108 H (98-107) mmol/L BUN (7-17) mg/dL AST 223 H (14-36) U/L ALT 611 H (4-34) U/L Alkaline Phosphatase 242 H (38-126) U/L Lactate Dehydrogenase 629 H (120-246) U/L Urine Protein (Negative) Urine Blood (Negative) Urine Bacteria (None) /hpf Urine Mucus (None) /hpf CT scan - abdomen: report reviewed CT scan - pelvis: report reviewed US - abdomen: report reviewed Assessment and Plan (1) Abnormal CT scan, kidney Narrative/Plan: The pt is being seen for concern re possible renal infarct. The pt's symptoms have improved markedly. The CT report mentions both infarct and pyelonephritis as differentials. The former was felt to be a reasonable concern, given the UA findings. On the other hand, she has no risk factors for thrombosis personally, or a suspicious family history. ECHO was negative - I reviewed the scan personally with Radiology. They indicated that, given the appearance, localized pyelonephritis appears more likely. The vasculature was well visualized and showed no abnormality. I therefore discussed the case in detail with the admitting service. It was felt to be reasonable to treat for possible pyelonephritis. The pt can be placed on ASA as a precaution. - Per radiology recommendations, repeat imaging can be performed in 4-6 wks. If the defect persists, indicating infarct, then additional w/u can be ordered. If not ( c/w treated pyelonephritis), then ASA can be discontinued Current Visit: Yes Status: Acute Code(s): R93.429 - ABNORMAL RADIOLOGIC FINDINGS ON DX IMAGING OF UNSP KIDNEY SNOMED Code(s): 195892147 Plan: H/o her brain tumor does not appear to be related. As noted, this was treated > 10 yrs ago, and the pt has been NO since, with regular f/u and imaging. Her MRI in 01/25 was negative, and she is on an annual f/u scheduled. She has no suspicious s/s
[2023-10-09 08:05] VITALS: BP 108/75; PULSE 79; RESP 16; TEMP 98.4
[2023-10-09 09:22] LABS: HCT 34.5 % (37.2-46.3); HGB 11.7 g/dL (12.0-15.0); MCH 30.6 pg (27.0-32.0); MCHC 33.9 g/dL (32.0-37.0); MCV 90.3 FL (80.0-97.0); Mean Platelet Volume 9.4 FL (9.5-12.2); NRBC Per 100 WBC 0 X 10*3/uL (0.00-0.01); Platelet Count 189 X 10*3/uL (140-440); RBC 3.82 X 10*6/uL (4.10-5.20); RDW 12.7 % (11.5-14.5); WBC 10.53 X 10*3/uL (4.50-10.00)
[2023-10-09 09:35] LABS: ALT 510 U/L (8-44); AST 153 U/L (13-35); Albumin/Globulin Ratio 1.54 Ratio (1.60-3.17); Alkaline Phosphatase 251 U/L (41-126); BUN/Creat Ratio 18.86 Ratio (12.00-20.00); Blood Urea Nitrogen 13.2 mg/dL (9.0-27.0); Calcium 8.8 mg/dL (8.7-10.3); Carbon Dioxide 23.1 mmol/L (21.6-31.8); Chloride 104 mmol/L (96-109); Globulin 2.6 g/dL (1.6-3.3); Glucose 83 mg/dL (70-110); Potassium 4.8 mmol/L (3.5-5.5); Sodium 138 mmol/L (135-145); Total Bilirubin 0.4 mg/dL (0.3-1.2); Total Protein 6.6 g/dL (6.2-8.2)
[2023-10-09 10:15] LABS: Basophils # (M) 0.11 X 10*3/uL (0.00-0.10); Eosinophils # (M) 0.11 X 10*3/uL (0.04-0.35); Lymphocytes # (M) 6.32 X 10*3/uL (0.90-5.00); Metamyelocytes % 1 % (0-0); Monocytes # (M) 1.47 X 10*3/uL (0.20-1.00); Myelocytes % 1 % (0-0); Neutrophils # (M) 2.32 X 10*3/uL (1.80-7.70); Neutrophils % (M) 22 %
--- NOTE | 2023-10-09 14:57 | P.DS ---
Providers Date of admission: 10/08/23 01:19 Expected date of discharge: 10/09/23 Attending physician: Anjana Bales MD Consults: 10/07/23 23:12 Consult Physician Urgent Consulting Provider: Jason Gotti Consult Reason/Comments: flank pain Do you want consulting provider notified?: Yes, Notify in am Primary care physician: Forest Vera MD Hospital Course: Right flank pain: Pyelonephritis versus renal infarct Elevated liver enzymes History of brain cancer Hospital course: Patient is a 22-year-old female with a PMH of brain cancer status post surgery, who chemotherapy, and radiation 12 years ago, currently in remission following with Dr. Soto who presented to the emergency room with complaints of right flank pain. CT abdomen and pelvis in the emergency room revealed a wedge-shaped haziness in the superior right kidney concerning for infarction. There was no evidence of urinary calculus or hydronephrosis. Gallbladder ultrasound revealed findings of steatosis. EKG revealed sinus rhythm with sinus rhythm at [address]/T wave changes noted as reviewed by me. Laboratory evaluation was remarkable for leukocytosis of 11.6, sodium 140, potassium 3.6, chloride 107, CO2 25, BUN 19, creatinine 0.64, AST 250, ALT 693, alk phos 261, with LDH 619. Case was managed in consultation with hematology/oncology. Consideration was given to both renal infarct versus pyelonephritis. UA did not seem consistent with pyelonephritis, however, patient also did not have significant risk factors for hypercoagulability. Echocardiogram was completed to rule out the poss ibility of endocarditis. Care plan was discussed with the patient and review of specialty recommendations, we discussed that we would like to treat her for pyelonephritis with a course of antibiotics for a total of 7 days and then have follow-up imaging completed in 4 to 6 weeks in coordination with her primary care physician. Patient had reported that her flank pain had improved and she denied fevers, chills, was in agreement with this plan. She was discharged home with primary care follow-up and a total 7-day course of antibiotics. Gen: In NAD, non-toxic HEENT: normocephalic, atraumatic, hearing acuity is intant, mucous membranes moist CVS: perfusing all extremities well, no pitting edema, Respiratory: symmetric chest expansion, no accessory muscle use, GI: soft, NTTP, ND, : no suprapubic tenderness, no CVA tenderness MSK/Derm: no rashes, cyanosis Neuro: CN II-XII intact, no motor weakness, Psych: cooperative, euthymic mood, judgment and insight is intact Patient Condition at Discharge: Good Plan - Discharge Summary New Discharge Prescriptions: New Cefdinir 300 mg PO Q12HR #12 cap Acetaminophen Tab [Tylenol] 650 mg PO Q6HR PRN tab PRN Reason: Mild Pain Or Fever > 100.5 Continue Levothyroxine Sodium [Synthroid] 75 mcg PO DAILY Ergocalciferol (Vitamin D2) [Drisdol (50,000 Iu)] 1,250 mcg PO Q30D Discharge Medication List Ergocalciferol (Vitamin D2) [Drisdol (50,000 Iu)] 1,250 mcg PO Q30D 10/08/23 [History] Levothyroxine Sodium [Synthroid] 75 mcg PO DAILY 10/08/23 [History] Acetaminophen Tab [Tylenol] 650 mg PO Q6HR PRN tab 10/09/23 [Rx] Cefdinir 300 mg PO Q12HR #12 cap 10/09/23 [Rx] Follow up Appointment(s)/Referral(s): Forest Vera MD [Primary Care Provider] - 1-2 days Patient Instructions/Handouts: Urinary Tract Infection in Women (DC), Flank Pain (ED) Activity/Diet/Wound Care/Special Instructions: FOLLOW UP DIRECTED, SOONER FOR WORSENING SYMPTOMS, PROBLEMS OR CONCERNS. REPEATED IMAGING RECOMMENDED IN 4 TO 6 WEEKS (PER ONCOLOGY) Discharge Disposition: HOME SELF-CARE
== END 2023-10-09 14:08 | disposition home or self-care (01) ==
LOC: EC 17:58 → 6NMEDSUR 10-08 01:19
PROVIDERS: ADMIT Internal Medicine; ATTEND Internal Medicine
DX: R10.31 Right lower quadrant pain (principal); R79.89 Other specified abnormal findings of blood chemistry; Z82.49 Family history of ischemic heart disease and other diseases of the circulatory system; Z85.841 Personal history of malignant neoplasm of brain
CPT/HCPCS: 96376; 96361 ×2; 96367; 96365; 99285; 36415; 93005; 93306; 80053 ×3; 82150; 83605; 83615; 83690; 85025 ×2; 85027; 81001; 81025; 74018; 76705; 74177; G0378 ×2; J0696 ×2; J1885; Q9967

== ENCOUNTER 2023-12-29 14:52 | Emergency (ER) | payer OTHER ==
--- NOTE | 2023-12-29 17:35 | ED ---
Headache HPI - General Chief Complaint: Headache Stated Complaint: headaches Time Seen by Provider: 12/29/23 17:01 Source: patient, RN notes reviewed Mode of arrival: ambulatory Limitations: no limitations - History of Present Illness Initial Comments: This is a 23-year-old female who presents to the emergency department for headaches. Reports intermittent headache for the last couple of weeks. States that this changes in location and intensity. Denies any nausea associated with this. States that she just had her eyes checked and was told that everything looked good from that standpoint. Unsure if this is related to sinuses or something else. Her largest concern is that she had brain cancer when she was younger and the first symptom of this was headaches. Her scans have been clear for years, but states that that is always in the back of her mind. MD Complaint: headache - Related Data Home Medications Medication Instructions Recorded Confirmed Ergocalciferol (Vitamin D2) 1,250 mcg PO Q30D 10/08/23 10/08/23 [Drisdol (50,000 Iu)] Levothyroxine Sodium [Synthroid] 75 mcg PO DAILY 10/08/23 10/08/23 Previous Rx's Medication Instructions Recorded Acetaminophen Tab [Tylenol] 650 mg PO Q6HR PRN tab 10/09/23 Cefdinir 300 mg PO Q12HR #12 cap 10/09/23 Ketorolac [Toradol] 10 mg PO Q6HR PRN #15 tab 12/29/23 Allergies Allergy/AdvReac Type Severity Reaction Status Date / Time No Known Allergies Allergy Verified 12/29/23 15:27 Review of Systems ROS Statement: Those systems with pertinent positive or pertinent negative responses have been documented in the HPI. ROS Other: All systems not noted in ROS Statement are negative. Past Medical History Past Medical History: Cancer History of Any Multi-Drug Resistant Organisms: None Reported Additional Past Surgical History / Comment(s): Brain CA, G tube Past Psychological History: No Psychological Hx Reported Smoking Status: Never smoker Past Alcohol Use History: None Reported Past Drug Use History: None Reported - Past Family History Mother Family Medical History: Hypertension General Exam Limitations: no limitations General appearance: alert, in no apparent distress Head exam: Present: atraumatic, normocephalic, normal inspection Eye exam: Present: normal appearance, PERRL, EOMI. Absent: scleral icterus, conjunctival injection, periorbital swelling Respiratory exam: Present: normal lung sounds bilaterally. Absent: respiratory distress, wheezes, rales, rhonchi, stridor Cardiovascular Exam: Present: regular rate, normal rhythm, normal heart sounds. Absent: systolic murmur, diastolic murmur, rubs, gallop, clicks Neurological exam: Present: alert, oriented X3, CN II-XII intact Psychiatric exam: Present: normal affect, normal mood Skin exam: Present: warm, dry, intact, normal color. Absent: rash Course Vital Signs 12/29/23 12/29/23 15:25 19:22 Temperature 97.8 F 98.4 F Pulse Rate 102 H 75 Respiratory 20 19 Rate Blood Pressure 133/90 122/84 O2 Sat by Pulse 99 98 Oximetry Medical Decision Making - Medical Decision Making This is a 23-year-old female who presents to the emergency department for headaches. Was pt. sent in by a medical professional or institution? @ -No Did you speak to anyone other than the patient for history? @ -No Did you review nursing and triage notes? @ -Yes, and I agree, it is accurate with regards to the patient's symptoms. Were old charts reviewed? @ -No Differential Diagnosis? @ -Differential Headache: Migraine, tension, cluster, carbon monoxide, central venous thrombosis, pension karma temporal arteritis, acute closure glaucoma, intercranial hemorrhage, mastoiditis, sinusitis, head injury, this is not meant to be an all-inclusive list. EKG interpreted by me (3pts min.)? @ -Not obtained X-rays interpreted by me (1pt min.)? @ -Not obtained CT interpreted by me (1pt min.)? @ -CT scan of the brain obtained. My interpretation identifies no evidence of acute intracranial hemorrhage or mass effect. U/S interpreted by me (1pt. min.)? @ -Not obtained What testing was considered but not performed? (CT, X-rays, U/S, labs)? Why? @ -None What meds were considered but not given? Why? @ -None Did you discuss the management of the patient with other professionals? @ -No Did you reconcile home meds? @ -No Was smoking cessation discussed for >3mins.? @ -No Was critical care preformed (if so, how long)? @ -No Were there social determinants of health that impacted care today? How? (Homelessness, low income, unemployed, alcoholism, drug addiction, transportation, low edu. Level, literacy, decrease access to med. care, snf, rehab)? @ -No Was there de-escalation of care discussed even if they declined? (Discuss DNR or withdrawal of care, Hospice)? @ -No What co-morbidities impacted this encounter? (DM, HTN, Smoking, COPD, CAD, Cancer, CVA, Hep., AIDS, mental health diagnosis, sleep apnea, morbid obesity)? @ -None Was patient admitted / discharged? @ -Discharged. CT scan of the brain obtained revealing no acute process. COVID, influenza, and RSV testing negative. Patient declined any pain medication in the emergency department. Advised that the cause of her headaches is not clear and she should follow-up with her primary care provider for further evaluation. Prescription for Toradol provided to see if that offers any benefit. Patient discharged home in stable condition. Case discussed with ED attending Dr. Porras. Return precautions reviewed in depth, the patient is instructed to return to the emergency department with any new, worsening, or concerning symptoms. Patient verbalized understanding. Undiagnosed new problem with uncertain prognosis? @ -None Drug Therapy requiring intensive monitoring for toxicity (Heparin, Nitro, Insulin, Cardizem)? @ -None Were any procedures done? @ -None Diagnosis/symptom? @ -Headaches Acute, or Chronic, or Acute on Chronic? @ -Acute Uncomplicated (without systemic symptoms) or Complicated (systemic symptoms)? @ -Uncomplicated Side effects of treatment? @ -None Exacerbation, Progression, or Severe Exacerbation] @ -Not applicable Poses a threat to life or bodily function? @ -No - Lab Data Lab Results 12/29/23 Range/Units 17:14 Influenza Type A (PCR) Not Detected (Not Detectd) Influenza Type B (PCR) Not Detected (Not Detectd) RSV (PCR) Not Detected (Not Detectd) SARS-CoV-2 (PCR) Not Detected (Not Detectd) - Radiology Data Radiology results: report reviewed, image reviewed Disposition Clinical Impression: Headache Disposition: HOME SELF-CARE Instructions (If sedation given, give patient instructions): Acute Headache (ED) Additional Instructions: Return to the emergency department with any new, worsening, or concerning symptoms. Take the Toradol with Tylenol as needed for pain relief. If you choose to take the Toradol, do not take any other anti-inflammatories such as ibuprofen, take one or the other. Follow up with your primary care provider in 1-2 days. Prescriptions: Ketorolac [Toradol] 10 mg PO Q6HR PRN #15 tab PRN Reason: Pain Is patient prescribed a controlled substance at d/c from ED?: No Referrals: Forest Vera MD [Primary Care Provider] - 1-2 days Time of Disposition: 19:09
--- NOTE | 2023-12-29 17:36 | CT ---
EXAMINATION TYPE: CT brain wo con CT DLP: 1095.9 mGycm, Automated exposure control for dose reduction was used. DATE OF EXAM: 12/29/2023 5:23 PM COMPARISON: None. CLINICAL INDICATION: Female, 23 years old with history of Headaches, hx of brain cancer, SANTOS, Hx of br ain CA. TECHNIQUE: Brain: Axial CT images of the brain were obtained with coronal and sagittal reformats created and rev iewed. Contrast used: None. Oral contrast used: None. FINDINGS: Brain: Extra-axial spaces: No abnormal extra-axial fluid collections. Ventricular system: Within normal limits Cerebral parenchyma: No acute intraparenchymal hemorrhage or mass effect. The wild-white junction is well differentiated. Cerebellum: Unremarkable. Mass effect: No evidence of midline shift. Intracranial vasculature: unremarkable Soft tissues: Normal. Calvarium/osseous structures: No depressed skull fracture. Paranasal sinuses and mastoid air cells: Mild scattered paranasal sinus disease. Visualized orbits: Orbital contents are intact. IMPRESSION: No acute intracranial process. [facility], , 12/29/2023 5:34 PM
[2023-12-29 19:24] VITALS: BP 122/84; PULSE 75; RESP 19; TEMP 98.4
== END 2023-12-29 19:24 | disposition home or self-care (01) ==
LOC: EC 14:52
CPT/HCPCS: 70450; 87636; 99284

== ENCOUNTER 2024-01-03 16:15 | Emergency (ER) | payer OTHER ==
[2024-01-03 16:27] VITALS: TEMP 97.9
[2024-01-03 17:41] LABS: Basophils % (A) 1 %; Eosinophils # (A) 0.2 k/uL (0-0.7); Eosinophils % (A) 3 %; HCT 37.7 % (34.0-46.0); HGB 12.7 gm/dL (11.4-16.0); Lymphocytes # (A) 2.9 k/uL (1.0-4.8); Lymphocytes % (A) 40 %; MCH 30.3 pg (25.0-35.0); MCHC 33.7 g/dL (31.0-37.0); MCV 90.2 fL (80.0-100.0); Mean Platelet Volume 6.7; Monocytes # (A) 0.4 k/uL (0-1.0); Monocytes % (A) 5 %; Neutrophils # (A) 3.4 k/uL (1.3-7.7); Neutrophils % (A) 48 %; Platelet Count 332 k/uL (150-450); RBC 4.18 m/uL (3.80-5.40); RDW 12.1 % (11.5-15.5); WBC 7.1 k/uL (3.8-10.6)
[2024-01-03 17:53] LABS: INR 0.9 (<1.2); Partial Thromboplastin Time 22.9 sec (22.0-30.0); Prothrombin Time 10.2 sec (10.0-12.5)
[2024-01-03 17:55] LABS: ALT 17 U/L (4-34); AST 23 U/L (14-36); African American GFR (CKD) >90 (>60 ml/min/1.73 sqM); Albumin 4.5 g/dL (3.5-5.0); Alkaline Phosphatase 45 U/L (38-126); Amylase 56 U/L (30-110); Anion Gap 10 mmol/L; Blood Urea Nitrogen 18 mg/dL (7-17); Calcium 9.8 mg/dL (8.4-10.2); Carbon Dioxide 27 mmol/L (22-30); Chloride 104 mmol/L (98-107); Glucose 88 mg/dL (74-99); Lipase 79 U/L (23-300); Non-African American GFR(CKD) >90 (>60 ml/min/1.73 sqM); Potassium 4.3 mmol/L (3.5-5.1); Sodium 141 mmol/L (137-145); Total Bilirubin 0.7 mg/dL (0.2-1.3); Total Protein 7.3 g/dL (6.3-8.2)
[2024-01-03 18:47] LABS: Appearance,Urine Clear (Clear); Bilirubin,Urine Negative (Negative); Blood,Urine Trace (Negative); Color,Urine Light Yellow; Glucose,Urine (UA) Negative (Negative); Ketones,Urine Negative (Negative); Leukocyte Esterase,Urine Negative (Negative); Mucus,Urine Occasional /hpf; Nitrite,Urine Negative (Negative); PH, Urine 5.5 (5.0-8.0); Protein,Urine Trace (Negative); RBC,Urine <1 /hpf (0-5); Squamous Epithelial Cell,Urine 5 /hpf (0-4); Urobilinogen,Urine <2.0 mg/dL (<2.0); WBC,Urine 2 /hpf (0-5)
--- NOTE | 2024-01-03 19:38 | ED ---
General Adult HPI - General Chief complaint: Back Pain/Injury Stated complaint: R flank pain Time Seen by Provider: 01/03/24 16:50 Source: patient, family, RN notes reviewed, old records reviewed Mode of arrival: ambulatory Limitations: no limitations - History of Present Illness Initial comments: 23-year-old female presents for evaluation of right flank pain. This been ongoing for 1 week. She had similar symptoms several months ago and was diagnosed with renal infarct. She denies fever. Denies dysuria or hematuria. Denies anterior abdominal pain. Patient has had a normal appetite without vomiting. No known heart or lung problems. - Related Data Home Medications Medication Instructions Recorded Confirmed Ergocalciferol (Vitamin D2) 1,250 mcg PO Q30D 10/08/23 10/08/23 [Drisdol (50,000 Iu)] Levothyroxine Sodium [Synthroid] 75 mcg PO DAILY 10/08/23 10/08/23 Previous Rx's Medication Instructions Recorded Acetaminophen Tab [Tylenol] 650 mg PO Q6HR PRN tab 10/09/23 Cefdinir 300 mg PO Q12HR #12 cap 10/09/23 Ketorolac [Toradol] 10 mg PO Q6HR PRN #15 tab 12/29/23 Allergies Allergy/AdvReac Type Severity Reaction Status Date / Time No Known Allergies Allergy Verified 12/29/23 15:27 Review of Systems ROS Statement: Those systems with pertinent positive or pertinent negative responses have been documented in the HPI. ROS Other: All systems not noted in ROS Statement are negative. Past Medical History Past Medical History: Cancer History of Any Multi-Drug Resistant Organisms: None Reported Additional Past Surgical History / Comment(s): Brain CA, G tube Past Psychological History: No Psychological Hx Reported Smoking Status: Never smoker Past Alcohol Use History: None Reported Past Drug Use History: None Reported - Past Family History Mother Family Medical History: Hypertension General Exam Limitations: no limitations General appearance: alert, in no apparent distress Head exam: Present: atraumatic, normocephalic Eye exam: Present: normal appearance, PERRL ENT exam: Present: normal exam Neck exam: Present: normal inspection. Absent: tenderness, meningismus Respiratory exam: Present: normal lung sounds bilaterally. Absent: respiratory distress, wheezes Cardiovascular Exam: Present: regular rate, normal rhythm GI/Abdominal exam: Present: soft. Absent: distended, tenderness, guarding Back exam: Absent: CVA tenderness (R), CVA tenderness (L) Neurological exam: Present: alert, oriented X3 Psychiatric exam: Present: normal affect, normal mood Skin exam: Present: warm, dry, intact. Absent: cyanosis, diaphoretic Course Vital Signs 01/03/24 16:24 Temperature 97.9 F Pulse Rate 97 Respiratory 16 Rate Blood Pressure 149/90 O2 Sat by Pulse 98 Oximetry Medical Decision Making - Medical Decision Making Was pt. sent in by a medical professional or institution (, [facility], LOG PROCESSOR OPERATOR, urgent care, hospital, or half-way...) When possible be specific @ -No Did you speak to anyone other than the patient for history (EMS, parent, family, police, friend...)? What history was obtained from this source @ -No Did you review nursing and triage notes (agree or disagree)? Why? @ -I reviewed and agree with nursing and triage notes Were old charts reviewed (outside hosp., previous admission, EMS record, old EKG, old radiological studies, urgent care reports/EKG's, half-way records)? Report findings @ -No old charts were reviewed Differential Abdominal Pain Women: Appendicitis, Cholecystitis, diverticulosis, ischemic bowel, pancreatitis, hepatitis, UTI, gastroenteritis, AAA, incarcerated hernia, bowel obstruction, constipation, inflammatory bowel, hepatitis, peptic ulcer disease, splenic infarction, perforated viscus, vulvitis, ovarian torsion, PID, kidney stone, placenta abruption, this is not meant to be an all-inclusive list EKG interpreted by me (3pts min.). @ -As above X-rays interpreted by me (1pt min.). @ -None done CT interpreted by me (1pt min.). @CT of the abdomen pelvis with contrast is negative for acute process. U/S interpreted by me (1pt. min.). @ -None done What testing was considered but not performed or refused? (CT, X-rays, U/S, labs)? Why? @ -None What meds were considered but not given or refused? Why? @ -None Did you discuss the management of the patient with other professionals (prof farrell i.e. [facility] Sutton, LOG PROCESSOR OPERATOR, lab, RT, psych nurse, licensed master social worker, kidney puller, teacher, fourth officer, case liner)? Give summary @ -No Was smoking cessation discussed for >3mins.? @ -No Was critical care preformed (if so, how long)? @ -No Were there social determinants of health that impacted care today? How? (Homelessness, low income, unemployed, alcoholism, drug addiction, transportation, low edu. Level, literacy, decrease access to med. care, long term, rehab)? @ -No Was there de-escalation of care discussed even if they declined (Discuss DNR or withdrawal of care, Hospice)? DNR status @ -No What co-morbidities impacted this encounter? (DM, HTN, Smoking, COPD, CAD, Cancer, CVA, ARF, Chemo, Hep., AIDS, mental health diagnosis, sleep apnea, morbid obesity)? @ -None Was patient admitted / discharged? Hospital course, mention meds given and route, prescriptions, significant lab abnormalities, going to OR and other pertinent info. @ -23-year-old female with right-sided flank pain. I did do a complete workup on this patient including CBC, CMP, urinalysis, CT scan. Workup is negative and the patient's pain is not requiring pain medication in the emergency department. She is stable for discharge with close outpatient follow-up and strict return parameters. Undiagnosed new problem with uncertain prognosis? @ -No Drug Therapy requiring intensive monitoring for toxicity (Heparin, Nitro, Insulin, Cardizem)? @ -No Were any procedures done? @ -No Diagnosis/symptom? @ -Flank pain Acute, or Chronic, or Acute on Chronic? @acute on chronic Uncomplicated (without systemic symptoms) or Complicated (systemic symptoms)? @ -Default Side effects of treatment? @ -No Exacerbation, Progression, or Severe Exacerbation? @ -No Poses a threat to life or bodily function? How? (Chest pain, USA, SD, pneumonia, PE, COPD, DKA, ARF, appy, cholecystitis, CVA, Diverticulitis, Homicidal, Suicidal, threat to staff... and all critical care pts) @ -No - Lab Data Result diagrams: 01/03/24 17:29 01/03/24 17:29 Lab Results 01/03/24 01/03/24 01/03/24 Range/Units 17:29 17:29 17:29 WBC 7.1 (3.8-10.6) k/uL RBC 4.18 (3.80-5.40) m/uL Hgb 12.7 (11.4-16.0) gm/dL Hct 37.7 (34.0-46.0) % MCV 90.2 (80.0-100.0) fL MCH 30.3 (25.0-35.0) pg MCHC 33.7 (31.0-37.0) g/dL RDW 12.1 (11.5-15.5) % Plt Count 332 (150-450) k/uL MPV 6.7 Neutrophils % 48 % Lymphocytes % 40 % Monocytes % 5 % Eosinophils % 3 % Basophils % 1 % Neutrophils # 3.4 (1.3-7.7) k/uL Lymphocytes # 2.9 (1.0-4.8) k/uL Monocytes # 0.4 (0-1.0) k/uL Eosinophils # 0.2 (0-0.7) k/uL Basophils # 0.0 (0-0.2) k/uL PT 10.2 (10.0-12.5) sec INR 0.9 (<1.2) APTT 22.9 (22.0-30.0) sec Sodium 141 (137-145) mmol/L Potassium 4.3 (3.5-5.1) mmol/L Chloride 104 (98-107) mmol/L Carbon Dioxide 27 (22-30) mmol/L Anion Gap 10 mmol/L BUN 18 H (7-17) mg/dL Creatinine 0.71 (0.52-1.04) mg/dL Est GFR (CKD-EPI)AfAm >90 (>60 ml/min/1.73 sqM) Est GFR (CKD-EPI)NonAf >90 (>60 ml/min/1.73 sqM) Glucose 88 (74-99) mg/dL Plasma Lactic Acid Neri (0.7-2.0) mmol/L Calcium 9.8 (8.4-10.2) mg/dL Total Bilirubin 0.7 (0.2-1.3) mg/dL AST 23 (14-36) U/L ALT 17 (4-34) U/L Alkaline Phosphatase 45 (38-126) U/L Total Protein 7.3 (6.3-8.2) g/dL Albumin 4.5 (3.5-5.0) g/dL Amylase 56 (30-110) U/L Lipase 79 (23-300) U/L Urine Color Urine Appearance (Clear) Urine pH (5.0-8.0) Ur Specific [place] (1.001-1.035) Urine Protein (Negative) Urine Glucose (UA) (Negative) Urine Ketones (Negative) Urine Blood (Negative) Urine Nitrite (Negative) Urine Bilirubin (Negative) Urine Urobilinogen (<2.0) mg/dL Ur Leukocyte Esterase (Negative) Urine RBC (0-5) /hpf Urine WBC (0-5) /hpf Ur Squamous Epith Cells (0-4) /hpf Urine Mucus (None) /hpf Urine HCG, Qual (Not Detectd) 01/03/24 01/03/24 01/03/24 Range/Units 17:29 18:20 18:20 WBC (3.8-10.6) k/uL RBC (3.80-5.40) m/uL Hgb (11.4-16.0) gm/dL Hct (34.0-46.0) % MCV (80.0-100.0) fL MCH (25.0-35.0) pg MCHC (31.0-37.0) g/dL RDW (11.5-15.5) % Plt Count (150-450) k/uL MPV Neutrophils % % Lymphocytes % % Monocytes % % Eosinophils % % Basophils % % Neutrophils # (1.3-7.7) k/uL Lymphocytes # (1.0-4.8) k/uL Monocytes # (0-1.0) k/uL Eosinophils # (0-0.7) k/uL Basophils # (0-0.2) k/uL PT (10.0-12.5) sec INR (<1.2) APTT (22.0-30.0) sec Sodium (137-145) mmol/L Potassium (3.5-5.1) mmol/L Chloride (98-107) mmol/L Carbon Dioxide (22-30) mmol/L Anion Gap mmol/L BUN (7-17) mg/dL Creatinine (0.52-1.04) mg/dL Est GFR (CKD-EPI)AfAm (>60 ml/min/1.73 sqM) Est GFR (CKD-EPI)NonAf (>60 ml/min/1.73 sqM) Glucose (74-99) mg/dL Plasma Lactic Acid Neri 1.8 (0.7-2.0) mmol/L Calcium (8.4-10.2) mg/dL Total Bilirubin (0.2-1.3) mg/dL AST (14-36) U/L ALT (4-34) U/L Alkaline Phosphatase (38-126) U/L Total Protein (6.3-8.2) g/dL Albumin (3.5-5.0) g/dL Amylase (30-110) U/L Lipase (23-300) U/L Urine Color Light Yellow Urine Appearance Clear (Clear) Urine pH 5.5 (5.0-8.0) Ur Specific [place] 1.020 (1.001-1.035) Urine Protein Trace H (Negative) Urine Glucose (UA) Negative (Negative) Urine Ketones Negative (Negative) Urine Blood Trace H (Negative) Urine Nitrite Negative (Negative) Urine Bilirubin Negative (Negative) Urine Urobilinogen <2.0 (<2.0) mg/dL Ur Leukocyte Esterase Negative (Negative) Urine RBC <1 (0-5) /hpf Urine WBC 2 (0-5) /hpf Ur Squamous Epith Cells 5 H (0-4) /hpf Urine Mucus Occasional H (None) /hpf Urine HCG, Qual Not Detected (Not Detectd) Disposition Clinical Impression: Flank pain Disposition: HOME SELF-CARE Condition: Fair Instructions (If sedation given, give patient instructions): Flank Pain (ED) Is patient prescribed a controlled substance at d/c from ED?: No Referrals: Forest Vera MD [Primary Care Provider] - 1-2 days Time of Disposition: 19:56
--- NOTE | 2024-01-03 19:42 | CT ---
EXAMINATION TYPE: CT abdomen pelvis w con CT DLP: 557.4 mGycm, Automated exposure control for dose reduction was used. DATE OF EXAM: 01/03/2024 7:06 PM COMPARISON: 10/07/2023 CLINICAL INDICATION: Female, 23 years old with history of right flank pain; right flank pain for 1 we ek. no dysuria. no fever. no n/v TECHNIQUE: Axial CT abdomen pelvis w con;Sagittal and coronal reformats were created on a separate w orkstation. Contrast used:100 ml mL of Isovue 300 with IV Contrast, (none if empty) Oral contrast used: without Oral Contrast (none if empty) FINDINGS: LOWER CHEST: Unremarkable ABDOMEN LIVER: Unremarkable GALLBLADDER AND BILE DUCTS: Unremarkable. PANCREAS: Unremarkable. SPLEEN: Unremarkable. ADRENAL GLANDS: Unremarkable. KIDNEYS AND URETERS: No evidence of hydronephrosis or renal calculus. The ureters are unremarkable. Symmetrical nephrogram bilaterally. PELVIS BLADDER: Unremarkable REPRODUCTIVE: The uterus is retroverted. ABDOMEN & PELVIS STOMACH AND BOWEL: No evidence of bowel obstruction. The appendix is normal. Large amount stool throu ghout the colon predominantly in the right PERITONEUM/RETROPERITONEUM: No evidence of pneumoperitoneum or free fluid. VASCULATURE: No evidence of aortic aneurysm. MUSCULOSKELETAL: No acute osseous abnormalities LYMPH NODES: No gross evidence for lymphadenopathy. SOFT TISSUE/ABDOMINAL WALL: Fat-containing umbilical hernia. IMPRESSION: Large amount stool in the right colon, No evidence for obstructive uropathy or renal calculus.The julissa endix is normal. No acute process to explain the patient's pain. [facility], , 01/03/2024 7:40 PM
[2024-01-03 20:07] VITALS: BP 137/93; PULSE 67; RESP 18
== END 2024-01-03 20:08 | disposition home or self-care (01) ==
LOC: EC 16:15
DX: R10.31 Right lower quadrant pain (principal)
CPT/HCPCS: 36415; 74177; 80053; 81001; 81025; 82150; 83605; 83690; 85025; 85610; 85730; 99284